=== PATIENT | female | born 1960 | race African-American/Black ===

== ENCOUNTER 2016-10-21 19:34 | Emergency (ER) | payer OTHER ==
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
[2016-10-21] MEDS ORDERED: OXYCODONE/APAP 5/325 TAB PO ONE (19:56)
[2016-10-21 20:04] VITALS: RESP 20
[2016-10-21] MEDS ORDERED: CYCLOBENZAPRINE 10MG PREPACK#3 BTL TAKEHOME ONE (20:56)
[2016-10-21 22:43] VITALS: BP 146/95; PULSE 81; TEMP 98.2; O2SAT 91
== END 2016-10-21 22:40 | disposition home or self-care (01) ==
DX: S39.012A Strain of muscle, fascia and tendon of lower back, initial encounter (principal); I10 Essential (primary) hypertension; E11.9 Type 2 diabetes mellitus without complications; V49.49XA Driver injured in collision with other motor vehicles in traffic accident, initial encounter; Y92.410 Unspecified street and highway as the place of occurrence of the external cause; Y99.8 Other external cause status; Y93.89 Activity, other specified